=== PATIENT | female | born 1975 | race Caucasian/White ===

== ENCOUNTER 2019-03-20 04:36 | Emergency (ER) | payer BC ==
[~2019-03-20] VITALS: Ht 172.7 cm; Wt 61.8 kg
[2019-03-20 04:44] VITALS: Ht 172.7 cm; Wt 61.8 kg
[2019-03-20] MEDS ORDERED: ALDACTONE100 MG PO (04:45)
[2019-03-20 05:00] LABS: BASOPHILS 0.8 % (0-2); EOSINOPHILS 2.3 % (0-7); HEMATOCRIT 40.1 % (36.0-48.0); HEMOGLOBIN 14.3 g/dL (12-16); IMMATURE GRANULOCYTES 0.2 % (0-5); LYMPHOCYTES 26.4 % (15-50); MCH 31.6 pg (26.0-34.0); MCHC 35.7 g/dL (31.0-37.0); MCV 88.7 fL (80.0-100.0); MEAN PLATELET VOLUME 10.3 fL (7.4-10.4); MONOCYTES 7.7 % (2-11); NEUTROPHILS 62.6 % (40-80); PLATELET COUNT 234 10x3/uL (130-400); RBC 4.52 10x6/uL (4.00-5.40); RDW 11.8 % (11.5-14.5); WBC 6.7 10x3/uL (4.8-10.8)
[2019-03-20 05:14] LABS: ALBUMIN 3.9 g/dL (3.4-5.0); ALKALINE PHOSPHATASE 47 U/L (46-116); ALT (SGPT) 17 U/L (10-68); BILIRUBIN - TOTAL 1.21 mg/dL (0.2-1.3); CALC OSMOLALITY 279 mosm/kg (275-300); CALCIUM 8.6 mg/dL (8.5-10.1); CHLORIDE - SERUM 107 mmol/L (98-107); CREATININE - SERUM 0.7 mg/dL (0.6-1.3); GLUCOSE 99 mg/dL (74-106); POTASSIUM - SERUM 3.4 mmol/L (3.5-5.1); PROTEIN - SERUM 6.8 g/dL (6.4-8.2); SODIUM 141 mmol/L (136-145); UREA NITROGEN 11 mg/dL (7-18); eGFR NON AFRICAN AMERICAN > 90 mL/min (90-120)
[2019-03-20 05:19] LABS: APTT 26.9 SECONDS (22.8-39.4); INR 1.06 (0.85-1.17); PROTIME 13.3 SECONDS (11.6-15.0)
[2019-03-20 05:25] LABS: CKMB 0.2 U/L (0.0-3.6); CREATINE KINASE 34 UL (21-215); MAGNESIUM - SERUM 1.9 mg/dL (1.8-2.4)
[2019-03-20 05:35] LABS: TROPONIN-I < 0.017 ng/mL (0.000-0.060)
[2019-03-20 06:05] VITALS: BP 114/72
== END 2019-03-20 06:36 | disposition home or self-care (01) ==
LOC: D.ER 04:36
PROVIDERS: Family Medicine
DX: R07.89 Other chest pain (principal)